=== PATIENT | male | born 1970 | race African-American/Black ===

== ENCOUNTER → 2020-02-17 | Outpatient (CLI) | payer BC ==
[~2020-02-17] MED LIST: VENTOLIN HFA 1818 GM INH
== END ==
LOC: M.MRI 01-06 11:30
PROVIDERS: ATTEND Registered Nurse Diabetes Educator
DX: M51.26 Other intervertebral disc displacement, lumbar region (principal); G89.29 Other chronic pain; M48.07 Spinal stenosis, lumbosacral region